=== PATIENT | female | born 1975 | race Caucasian/White ===

== ENCOUNTER 2017-09-26 15:29 | Emergency (ER) | payer MEDICAID, OTHER ==
[2017-09-26] MEDS ORDERED: Ondansetron 4 MG Tab.DIS PO ONE (15:30)
[2017-09-26 15:38] VITALS: BP 151/87
--- NOTE | 2017-09-26 15:56 | EDM.PDOC ---
ED HPI GENERAL MEDICAL PROBLEM - General Chief Complaint: Gastrointestinal Problem Stated Complaint: N,V,D Time Seen by Provider: 09/26/17 15:35 Source of Information: Reports: Patient History Limitations: Reports: No Limitations - History of Present Illness INITIAL COMMENTS - FREE TEXT/NARRATIVE: Patient presents today with a 24 hour history of not feeling well. She started out with nausea and vomiting yesterday, progressed in to diarrhea. Not able to drink or eat well today due to nausea. Has not taken her blood pressure meds as a result. She has been taking immodium to help slow down the diarrhea. Patient today is now running a fever, feels more body aches and a headache. She states "just don't feel well at all". Denies cough, sinus congestion or sore throat. Is worried about her electrolytes as they have gotten low in the past when she gets ill like this. Duration: Day(s): Location: Reports: Abdomen, Generalized Quality: Reports: Ache Severity: Moderate Improves with: Reports: Rest Associated Symptoms: Reports: Fever/Chills, Headaches, Loss of Appetite, Malaise , Nausea/Vomiting, Weakness. Denies: Chest Pain, Cough, Shortness of Breath Treatments SUPERVISOR CARDING: Reports: Other (see below) Other Treatments SUPERVISOR CARDING: immodium Generalized Pain Score (Numeric/FACES): 5 - Related Data Allergies Allergy/AdvReac Type Severity Reaction Status Date / Time No Known Allergies Allergy Verified 09/26/17 15:30 Home Meds: Home Meds Metoprolol Tartrate 50 mg PO BID 04/07/14 [History] Hydrochlorothiazide 25 mg PO DAILY 06/24/16 [History] Norgestrel-Ethinyl Estradiol [Cryselle-28 Tablet] 1 tab PO DAILY 06/24/16 [ History] Past Medical History Cardiovascular History: Reports: Hypertension - Past Surgical History Female Surgical History: Reports: D&C Social & Family History - Tobacco Use Smoking Status *Q: Never Smoker Second Hand Smoke Exposure: No - Alcohol Use Days Per Week of Alcohol Use: 2 Number of Drinks Per Day: 1 Total Drinks Per Week: 2 - Recreational Drug Use Recreational Drug Use: No ED ROS GENERAL - Review of Systems Review Of Systems: See Below Constitutional: Reports: Fever, Chills, Malaise, Weakness, Fatigue, Decreased Appetite HEENT: Reports: No Symptoms Respiratory: Denies: Shortness of Breath, Cough Cardiovascular: Denies: Chest Pain, Edema, Lightheadedness Endocrine: Reports: Fatigue GI/Abdominal: Reports: Abdominal Pain, Diarrhea, Nausea, Vomiting. Denies: Black Stool, Bloody Stool : Reports: No Symptoms Musculoskeletal: Reports: Other (body aches) Skin: Reports: No Symptoms Neurological: Reports: Headache ED EXAM, GI/ABD - Physical Exam Exam: See Below Exam Limited By: No Limitations General Appearance: Alert, WD/WN, No Apparent Distress Ears: Normal External Exam, Normal TMs Nose: Normal Inspection, Normal Mucosa, No Blood Throat/Mouth: Normal Inspection, Normal Oropharynx Head: Normocephalic Neck: Normal Inspection, Supple, Non-Tender Respiratory/Chest: No Respiratory Distress, Lungs Clear, Normal Breath Sounds Cardiovascular: Regular Rate, Rhythm GI/Abdominal Exam: Normal Bowel Sounds, Soft, Non-Tender Neurological: Alert, Oriented Skin Exam: Warm, Dry Course - Vital Signs Last Recorded V/S: Last Vital Signs Temp 101.9 F H 09/26/17 15:33 Pulse 124 H 09/26/17 15:33 Resp 20 09/26/17 15:33 BP 151/87 H 09/26/17 15:33 Pulse Ox 99 09/26/17 15:33 - Orders/Labs/Meds Orders: Active Orders 24 hr Category Date Time Status UA W/MICROSCOPIC [URIN] Routine Lab 09/26/17 16:18 Results Lactated Ringers [Ringers, Lactated] 1,000 ml Med 09/26/17 16:00 Active IV ASDIRECTED Medication Orders Lactated Ringer's (Ringers, Lactated) 1,000 mls @ 500 mls/hr IV ASDIRECTED MICKY Last Admin: 09/26/17 16:01 Dose: 500 mls/hr Labs: Laboratory Tests 09/26/17 09/26/17 09/26/17 Range/Units 15:55 15:55 16:18 WBC 9.2 (5.0-10.0) 10^3/uL RBC 4.77 (4.00-5.50) 10^6/uL Hgb 14.2 (12.0-16.0) g/dL Hct 43.2 (37.0-47.0) % MCV 90.6 (82.0-94.0) fL MCH 29.8 (27.0-32.0) pg MCHC 32.9 L (33.0-38.0) g/dL RDW Coeff of Jay 14.5 (11.0-15.0) % Plt Count 314 (150-400) 10^3/uL Neut % (Auto) 85.9 H (35-85) % Lymph % (Auto) 7.7 L (10-55) % [place] % (Auto) 6.2 (0-16) % Eos % (Auto) 0.1 (0-5) % Baso % (Auto) 0.1 (0-3) % Neut # (Auto) 7.86 H (1.80-7.00) 10^3/uL Lymph # (Auto) 0.70 L (1.00-4.80) 10^3/uL [place] # (Auto) 0.57 (0.00-0.80) 10^3/uL Eos # (Auto) 0.01 (0.00-0.45) 10^3/uL Baso # (Auto) 0.01 10^3/uL Sodium 137 (136-145) mEq/L Potassium 3.3 L (3.5-5.0) mEq/L Chloride 102 (98-106) mEq/L Carbon Dioxide 21 (21-32) mmol/L BUN 16 (7-18) mg/dL Creatinine 0.8 (0.6-1.0) mg/dL Est Cr Clr Drug Dosing 84.88 mL/min Estimated GFR (MDRD) > 60 (>=60) mL/min Glucose 115 H (75-99) mg/dL Calcium 8.8 (8.4-10.1) mg/dL Total Bilirubin 0.3 (0.0-1.0) mg/dL AST 37 (15-37) U/L ALT 54 (12-78) U/L Alkaline Phosphatase 45 L (46-116) U/L C-Reactive Protein 8.0 H (0.2-0.8) mg/dL Total Protein 7.9 (6.4-8.2) g/dL Albumin 3.5 (3.4-5.0) g/dL Urine Color (YELLOW) Urine Appearance (CLEAR) Urine pH (4.5-8.0) Ur Specific Portal (1.003-1.020) Urine Protein (NEGATIVE) mg/dL Urine Glucose (UA) (NEGATIVE) mg/dL Urine Ketones (NEGATIVE) mg/dL Urine Occult Blood (NEGATIVE) Urine Nitrite (NEGATIVE) Urine Bilirubin (NEGATIVE) Urine Urobilinogen (0.2-1.0) EU/dL Ur Leukocyte Esterase (NEGATIVE) Urine HCG, Qual Negative 09/26/17 Range/Units 16:18 WBC (5.0-10.0) 10^3/uL RBC (4.00-5.50) 10^6/uL Hgb (12.0-16.0) g/dL Hct (37.0-47.0) % MCV (82.0-94.0) fL MCH (27.0-32.0) pg MCHC (33.0-38.0) g/dL RDW Coeff of Jay (11.0-15.0) % Plt Count (150-400) 10^3/uL Neut % (Auto) (35-85) % Lymph % (Auto) (10-55) % [place] % (Auto) (0-16) % Eos % (Auto) (0-5) % Baso % (Auto) (0-3) % Neut # (Auto) (1.80-7.00) 10^3/uL Lymph # (Auto) (1.00-4.80) 10^3/uL [place] # (Auto) (0.00-0.80) 10^3/uL Eos # (Auto) (0.00-0.45) 10^3/uL Baso # (Auto) 10^3/uL Sodium (136-145) mEq/L Potassium (3.5-5.0) mEq/L Chloride (98-106) mEq/L Carbon Dioxide (21-32) mmol/L BUN (7-18) mg/dL Creatinine (0.6-1.0) mg/dL Est Cr Clr Drug Dosing mL/min Estimated GFR (MDRD) (>=60) mL/min Glucose (75-99) mg/dL Calcium (8.4-10.1) mg/dL Total Bilirubin (0.0-1.0) mg/dL AST (15-37) U/L ALT (12-78) U/L Alkaline Phosphatase (46-116) U/L C-Reactive Protein (0.2-0.8) mg/dL Total Protein (6.4-8.2) g/dL Albumin (3.4-5.0) g/dL Urine Color Dark yellow (YELLOW) Urine Appearance Cloudy (CLEAR) Urine pH 5.5 (4.5-8.0) Ur Specific Portal >= 1.030 H (1.003-1.020) Urine Protein Trace H (NEGATIVE) mg/dL Urine Glucose (UA) Negative (NEGATIVE) mg/dL Urine Ketones Negative (NEGATIVE) mg/dL Urine Occult Blood Negative (NEGATIVE) Urine Nitrite Negative (NEGATIVE) Urine Bilirubin Negative (NEGATIVE) Urine Urobilinogen 0.2 (0.2-1.0) EU/dL Ur Leukocyte Esterase Negative (NEGATIVE) Urine HCG, Qual Meds: Medications Generic Name Dose Route Start Last Admin Trade Name Freq PRN Reason Stop Dose Admin Lactated Ringer's 1,000 mls @ 500 mls/hr 09/26/17 16:00 09/26/17 16:01 Ringers, Lactated IV 500 mls/hr ASDIRECTED MICKY Administration Discontinued Medications Generic Name Dose Route Start Last Admin Trade Name Freq PRN Reason Stop Dose Admin Acetaminophen 650 mg 09/26/17 16:08 09/26/17 16:16 Tylenol PO 09/26/17 16:09 650 mg NOW ONE Administration Ondansetron HCl 4 mg 09/26/17 15:47 09/26/17 16:01 Zofran IVPUSH 09/26/17 15:48 4 mg NOW ONE Administration - Re-Assessments/Exams Free Text/Narrative Re-Assessment/Exam: 09/26/17 16:32 labs essentially negative. CRP elevated. Patient dehydrated. IV fluids and nausea meds given. Nausea improved. Departure - Departure Time of Disposition: 16:34 Disposition: Home, Self-Care 01 Condition: Good Clinical Impression: Gastroenteritis - Discharge Information Forms: ED Department Discharge Additional Instructions: 1. Push fluids 2. Zofran 4 mg every 6 hours as needed for nausea 3. May continue to take Immodium as needed 4. Follow up if ongoing concerns. - My Orders Last 24 Hours: My Active Orders 09/26/17 16:00 Lactated Ringers [Ringers, Lactated] 1,000 ml IV ASDIRECTED 09/26/17 16:18 UA W/MICROSCOPIC [URIN] Routine - Assessment/Plan Last 24 Hours: My Active Orders 09/26/17 16:00 Lactated Ringers [Ringers, Lactated] 1,000 ml IV ASDIRECTED 09/26/17 16:18 UA W/MICROSCOPIC [URIN] Routine
[2017-09-26] MEDS: Ondansetron 4 MG/2 ML SDV IVPUSH ONE (16:01)
[2017-09-26] MEDS: Lactated Ringers 1,000 ML IV SCH (16:01)
[2017-09-26] MEDS: Acetaminophen 325 MG Tab PO ONE (16:16)
[2017-09-26 16:26] LABS: CHLORIDE,CL 102 mEq/L (98-106); SODIUM,NA 137 mEq/L (136-145)
[2017-09-26] MEDS: Take Home: Ondansetron 4 MG Tab.DIS, 2 Tab Pack PO ONE (16:53)
== END 2017-09-26 18:50 | disposition home or self-care (01) ==
LOC: CC.ED 15:29
DX: K52.9 Noninfective gastroenteritis and colitis, unspecified (principal); I10 Essential (primary) hypertension; Z79.899 Other long term (current) drug therapy
CPT/HCPCS: 36415; 80053; 81001; 81025; 85025; 86140; 87804; 96361; 96374; 99284; A9270-GY; J2405; J7120